=== PATIENT | male | born 1985 | race Caucasian/White ===

== ENCOUNTER 2018-01-11 20:55 | Emergency (ER) | payer BC ==
[~2018-01-11] VITALS: Ht 175.3 cm; Wt 97.7 kg
[~2018-01-11 20:55] MED LIST: NO HOME MEDICATIONS; PHENERGAN 25 TA25 MG PO
[2018-01-11 21:01] VITALS: BP 155/84; PULSE 71; TEMP 97
[2018-01-11 22:11] LABS: BASO # 0.1 (0.0-0.2); EOS # 0.1 (0.0-0.7); EOS % 1.5 % (0-4.0); GRAN # 4.2 (1.4-6.5); GRAN % 53.1 % (42.2-75.2); HEMATOCRIT 45.3 % (42.0-52.0); HEMOGLOBIN 16.1 g/dl (13.5-18.0); LYMPH # 2.8 (1.2-3.4); LYMPH % 35.1 % (20.0-51.0); MEAN CELL VOLUME 87 fl (80.0-100.0); MEAN CORPUSCULAR HEMOGLOBIN 31 pg (27.0-31.0); MEAN CORPUSCULAR HGB CONC 36 g/dl (33.0-37.0); MEAN PLATELET VOLUME 9.1 fl (7.4-10.4); MONO # 0.7 (0.1-0.6); MONO % 8.9 % (1.7-9.3); PLATELET COUNT 270 K/mm3 (130-400); RED BLOOD COUNT 5.24 M/mm3 (4.20-5.60); REDCELL DISTRIBUTION WIDTH-CV 12.2 % (11.5-14.5)
[2018-01-11 22:29] LABS: ALBUMIN 4.7 gm/dL (3.5-5.0); BILIRUBIN,TOTAL 0.3 mg/dL (0.0-1.0); CALCIUM 9.2 mg/dL (8.4-10.2); CREATININE, serum 0.88 mg/dL (0.66-1.25); POTASSIUM 3.8 mmol/L (3.4-5.0); TOTAL PROTEIN 7.5 gm/dL (6.4-8.2)
[2018-01-11] MEDS ORDERED: CARAFATE 1GM1 G PO (22:37)
== END 2018-01-11 22:47 | disposition home or self-care (01) ==
LOC: COL.ER 20:55
PROVIDERS: Physician Assistant
DX: K21.9 Gastro-esophageal reflux disease without esophagitis (principal)

== ENCOUNTER → 2018-02-14 | Outpatient (CLI) | payer BC ==
[~2018-02-14] MED LIST changes: +CARAFATE 1GM1 G PO
== END ==
LOC: COL.RAD 09:17
DX: R10.9 Unspecified abdominal pain (principal); R11.0 Nausea